=== PATIENT | female | born 1990 | race American Indian/Alaskan Native ===

== ENCOUNTER 2017-07-23 19:43 | Emergency (ER) | payer MEDICAID ==
[~2017-07-23] VITALS: Ht 172.7 cm; Wt 83.9 kg
[2017-07-23] MEDS ORDERED: oxyCODONE HCL/Acetaminophen 5/325mg ORAL ONE (21:15)
[2017-07-23] MEDS ORDERED: IBUPROFEN800 MG ORAL (22:13)
[2017-07-23 22:31] VITALS: BP 163/94
--- NOTE | 2017-07-24 12:20 | Diagnostic Imaging Report ---
Indication: Pain 3 views of the right knee were obtained. Findings: No acute fracture, malalignment, or joint effusion are identified. Joint space is relatively well-maintained. Impression: Negative for acute findings.
--- NOTE | 2017-07-24 14:35 | Emergency Room Report ---
History of Present Illness General Chief Complaint: Pain Source: Patient Present Illness HPI 27YOF with right knee pain after accidental trip and fall directly on right knee earlier Unable to bend knee since C/o "tightening" pain to anterior thigh No previous knee/leg injury Didnt take OTC meds Denies pain to right foot, lower leg, hip/pelvis Allergies: Coded Allergies: No Known Allergies (Unverified , 07/23/17) Patient History Past Medical History: none Past Surgical History: none Pertinent Family History: none Social History: Denies: smoking, alcohol use, drug use Last Menstrual Period: 04/21 Now: No : 0 Para: 0 Immunizations: UTD Reviewed Nursing Documentation: PMH: Agreed, PSxH: Agreed Nursing Documentation-PMH Past Medical History: No Stated History Review of Systems All Other Systems: negative except mentioned in HPI Physical Exam Vital Signs Date Time Temp Pulse Resp B/P (MAP) Pulse Ox O2 Delivery O2 Flow Rate FiO2 07/23/17 19:35 98.1 98 18 163/94 98 Room Air Sp02 EP Interpretation: reviewed, normal General Appearance: normal inspection, well appearing, no apparent distress, alert, GCS 15, non-toxic Head: normocephalic, atraumatic Eyes: bilateral eye PERRL, bilateral eye EOMI ENT: normal ENT inspection, hearing grossly normal, normal voice Neck: normal inspection, full range of motion, supple, no bony tend Respiratory: normal inspection, lungs clear, normal breath sounds, no respiratory distress, no retraction, no wheezing Cardiovascular #1: regular rate, rhythm, no edema Gastrointestinal: normal inspection, normal bowel sounds, non tender, soft, no guarding, no hernia Genitourinary: no CVA tenderness Musculoskeletal: normal inspection, back normal, normal range of motion, non- tender, no calf tenderness, pelvis stable, Casey's Sign negative, other - Right knee held in extension on stretcher: palpable tightning, ?muscle spasm of right anterior thigh. Only mild ttp to right patella. Able to move foot/ankle, wiggle toes. No ttp or reduced ROm to right hip/pelvis. No palpable posteior popliteal mass Neurologic: normal inspection, alert, responsive, speech normal Psychiatric: normal inspection, judgement/insight normal, mood/affect normal Skin: normal inspection, normal color, no rash Medical Decision Making Diagnostic Impression: Primary Impression: Knee pain Qualified Codes: M25.561 - Pain in right knee ER Course Xray right knee negative on ED review VSS. Afebrile. Spasm/tightening of right anterior thigh possible d/t pain to right knee Was given percocet/ibuprofen Advised RICE, NSAIDS Was placed in knee immobilizer and given crutches because of unable to flex knee Ortho followup in 3 days Other X-Ray Diagnostic Results Other X-Ray Diagnostic Results : X-Ray ordered: Right knee # of Views/Limited Vs Complete: 3 View Indication: Pain EP Interpretation: Yes Interpretation: no dislocation, no soft tissue swelling, no fractures Impression: No acute disease Electronically Signed by: Dr Morgan Saul MD Last Vital Signs Date Time Temp Pulse Resp B/P (MAP) Pulse Ox O2 Delivery O2 Flow Rate FiO2 07/23/17 22:31 98.1 18 163/94 98 Room Air 07/23/17 19:35 98 Status: improved Disposition: HOME, SELF-CARE Condition: Improved Scripts Ibuprofen* (MOTRIN*) 800 Mg Tablet 800 MG ORAL THREE TIMES A DAY for For Pain, #30 TAB 0 Refills Prov: MORGAN SAUL M.D. 07/23/17 Patient Instructions: Knee Pain, [id number] Additional Instructions: - Apply ice 3x a day to area of thigh above knee - Take ibuprofen 3x/day with food for pain/swelling - Keep immobilizer on until seen by Orthopedist in 2-3 days MORGAN SAUL M.D. Jul 24, 2017 14:35
== END 2017-07-23 22:31 | disposition home or self-care (01) ==
LOC: EDBD 19:43 → EMR 20:30
DX: M25.561 Pain in right knee (principal)
CPT/HCPCS: 99283